=== PATIENT | male | born 1980 | race Two or more races ===

== ENCOUNTER 2022-04-12 03:41 | Emergency (ER) | payer BC ==
[2022-04-12] MEDS ORDERED: Lidocaine 1% 5 ML VIAL INJECT ONE (04:00)
[2022-04-12] MEDS ORDERED: Diphtheria,Pertussis(Acell),Tetanus Vaccine 0.5 ML Syringe IM ONE (04:00)
== END 2022-04-12 04:38 | disposition home or self-care (01) ==
LOC: MW.ED 03:41
DX: S61.412A Laceration without foreign body of left hand, initial encounter (principal); Z23 Encounter for immunization; W26.0XXA Contact with knife, initial encounter
CPT/HCPCS: 12002; 90471; 90715; 99282-25

== ENCOUNTER 2022-07-03 20:50 | Emergency (ER) | payer BC ==
[2022-07-03 22:38] LABS: CORONAVIRUS COVID-19 NAA NEGATIVE (NEGATIVE); INFLUENZA A NAA NEGATIVE (NEGATIVE); INFLUENZA B NAA NEGATIVE (NEGATIVE); RESPIRATORY SYNCYTIAL VIR NAA NEGATIVE (NEGATIVE)
[2022-07-03] MEDS ORDERED: Ibuprofen 600 MG Tab PO ONE (22:58)
[2022-07-03] MEDS ORDERED: Azithromycin 250 MG Tab PO ONE (22:58)
== END 2022-07-03 23:15 | disposition home or self-care (01) ==
LOC: MW.ED 20:50
DX: J98.8 Other specified respiratory disorders (principal); I10 Essential (primary) hypertension; Z79.899 Other long term (current) drug therapy; Z20.822 Contact with and (suspected) exposure to COVID-19
CPT/HCPCS: 0241U; 99283; A9270

== ENCOUNTER 2022-08-17 19:59 | Emergency (ER) | payer BC ==
[2022-08-17 22:33] LABS: CORONAVIRUS COVID-19 NAA NEGATIVE (NEGATIVE); INFLUENZA A NAA POSITIVE (NEGATIVE); INFLUENZA B NAA NEGATIVE (NEGATIVE)
[2022-08-17] MEDS ORDERED: Dexamethasone 10 MG/ML SDV IM STA (22:40)
== END 2022-08-17 23:08 | disposition home or self-care (01) ==
LOC: MW.ED 19:59
DX: J10.1 Influenza due to other identified influenza virus with other respiratory manifestations (principal); I10 Essential (primary) hypertension; Z20.822 Contact with and (suspected) exposure to COVID-19
CPT/HCPCS: 0240U; 71045; 96372; 99285; J1100

== ENCOUNTER 2022-12-03 16:32 | Emergency (ER) | payer BC ==
[2022-12-03] MEDS ORDERED: Orphenadrine 60 MG/2 ML Inj IM ONE (16:53)
[2022-12-03] MEDS ORDERED: Ketorolac 30 MG/ML SDV IM ONE (16:53)
== END 2022-12-03 17:39 | disposition home or self-care (01) ==
LOC: MW.ED 16:32
DX: M62.830 Muscle spasm of back (principal); I10 Essential (primary) hypertension
CPT/HCPCS: 96372; 99283; J1885; J2360

== ENCOUNTER 2024-07-06 09:55 | Emergency (ER) | payer SELFPAY ==
[2024-07-06] MEDS: Sodium Chloride 0.9% 2.5 ML Syringe FLUSH PRN (10:16)
[2024-07-06] MEDS: Sodium Chloride 0.9% 10 ML Syringe FLUSH PRN (10:16)
[2024-07-06] MEDS: Ketorolac 30 MG/ML SDV IVPUSH ONE (10:16)
[2024-07-06] MEDS: Sodium Chloride 0.9% 1,000 ML IV ONE (10:17)
[2024-07-06 10:28] LABS: BASOPHILS ABSOLUTE AUTO 0.06 K/uL (0.00-0.20); BASOPHILS PERCENT AUTO 0.9 % (0.0-1.0); EOSINOPHILS ABSOLUTE AUTO 0.04 K/uL (0.00-0.45); EOSINOPHILS PERCENT AUTO 0.6 % (0.0-6.0); HEMATOCRIT 44.7 % (42.0-52.0); HEMOGLOBIN 15.1 g/dL (14.0-18.0); LYMPHOCYTES ABSOLUTE AUTO 1.95 K/uL (1.00-4.80); LYMPHOCYTES PERCENT AUTO 30.5 % (24.0-44.0); MEAN CORPUSCULAR HGB CONC 33.8 g/dL (32.0-36.0); MEAN PLATELET VOLUME 9.6 fL (9.4-12.4); MONOCYTES PERCENT AUTO 7.8 % (0.0-8.0); NEUTROPHILS ABSOLUTE AUTO 3.84 K/uL (1.80-7.70); NEUTROPHILS PERCENT AUTO 60.2 % (41.0-71.0); PLATELET COUNT,PLT 261 K/uL (150-400); WHITE BLOOD CELL COUNT,WBC 6.39 K/uL (3.9-11.3)
[2024-07-06 10:58] LABS: A/G RATIO 1.1 (0.9-1.6); ALBUMIN 3.7 g/dL (3.4-5.0); BILIRUBIN TOTAL 0.6 mg/dL (0.2-1.0); CALCIUM 8.4 mg/dL (8.5-10.1); CREATININE 0.7 mg/dL (0.8-1.3); EST CRCL DRUG DOSING (CG) 136.07 mL/min; POTASSIUM,K 4.2 mmol/L (3.5-5.1); TSH ULTRASENSITIVE 1.2 uIU/mL (0.36-3.74)
== END 2024-07-06 12:04 | disposition home or self-care (01) ==
LOC: MW.ED 09:55
DX: R20.2 Paresthesia of skin (principal); R07.9 Chest pain, unspecified; Z79.899 Other long term (current) drug therapy; Z75.8 Other problems related to medical facilities and other health care
CPT/HCPCS: 36415; 70450; 71045; 80053; 84443; 84484; 85025; 93005; 96361; 96374; 99285; J1885; J3490; J7030; 93010; 99284

== ENCOUNTER 2025-07-07 22:43 | Day surgery (SDC) | payer BC ==
[2025-07-07 23:24] LABS: BASOPHILS ABSOLUTE AUTO 0.05 K/uL (0.00-0.20); BASOPHILS PERCENT AUTO 0.3 % (0.0-1.0); EOSINOPHILS ABSOLUTE AUTO 0.07 K/uL (0.00-0.45); EOSINOPHILS PERCENT AUTO 0.4 % (0.0-6.0); IMMATURE GRAN ABSOLUTE AUTO 0.09 K/uL (0.00-0.05); IMMATURE GRAN PERCENT AUTO 0.5 % (0.0-0.4); LYMPHOCYTES ABSOLUTE AUTO 1.92 K/uL (1.00-4.80); LYMPHOCYTES PERCENT AUTO 9.9 % (24.0-44.0); MEAN PLATELET VOLUME 10.0 fL (9.4-12.4); MONOCYTES ABSOLUTE AUTO 1.24 K/uL (0.00-0.80); MONOCYTES PERCENT AUTO 6.4 % (0.0-8.0); NEUTROPHILS ABSOLUTE AUTO 16.06 K/uL (1.80-7.70); NEUTROPHILS PERCENT AUTO 82.5 % (41.0-71.0); NRBC ABSOLUTE 0.00 K/uL (0.00-0.02); NRBC PERCENT 0.0 /100WBC (0.0-0.2); PLATELET COUNT,PLT 235 K/uL (150-400); RED BLOOD CELL COUNT 5.24 M/uL (4.52-5.90); WHITE BLOOD CELL COUNT,WBC 19.43 K/uL (3.9-11.3)
[2025-07-07 23:34] LABS: APPEARANCE,URINE CLEAR; GLUCOSE,URINE NEGATIVE (NEGATIVE); OCCULT BLOOD,URINE NEGATIVE (NEGATIVE)
[2025-07-07] MEDS ORDERED: Sodium Chloride 0.9% 2.5 ML Syringe FLUSH PRN (23:42)
[2025-07-07] MEDS ORDERED: Sodium Chloride 0.9% 10 ML Syringe FLUSH PRN (23:42)
[2025-07-07 23:43] LABS: EPITHELIAL CELLS,URINE RARE (NONE-FEW)
[2025-07-07 23:52] LABS: A/G RATIO 1.1 (0.9-1.6); ALANINE AMINOTRANSFERASE,ALT 63 IU/L (14-63); ASPARTATE AMNIOTRANSFERASE,AST 34 IU/L (15-37); BILIRUBIN TOTAL 0.6 mg/dL (0.2-1.0); BLOOD UREA NITROGEN,BUN 27 mg/dL (7.0-18.0); CARBON DIOXIDE,CO2 26.8 mmol/L (21.0-32.0); CHLORIDE,CL 103 mmol/L (98-107); CREATININE 0.8 mg/dL (0.8-1.3); GLUCOSE RANDOM 134 mg/dL (74-106); POTASSIUM,K 4.2 mmol/L (3.5-5.1); PROTEIN TOTAL,TP 7.5 g/dL (6.4-8.2); SODIUM,NA 137 mmol/L (136-148)
[2025-07-07 23:56] LABS: ESTIMATED GFR 112 mL/min (>60)
[2025-07-08 00:06] LABS: LACTIC ACID 0.9 mmol/L (0.4-2.0)
[2025-07-08] MEDS: Iopamidol 755 MG/ML 500 ML Multipack Bottle IVPUSH STA (00:45)
[2025-07-08] MEDS ORDERED: Naloxone 0.4 MG/ML SDV IVPUSH PRN ×2 (01:18→07:33)
[2025-07-08] MEDS: Ondansetron 4 MG/2 ML SDV IVPUSH ONE ×2 (02:38)
[2025-07-08] MEDS: Lactated Ringers 1,000 ML IV SCH (02:44)
[2025-07-08] MEDS ORDERED: Ondansetron 4 MG/2 ML SDV IVPUSH PRN (07:33)
[2025-07-08] MEDS ORDERED: fentaNYL 50 MCG/ML SDV IVPUSH PRN (07:33)
[2025-07-08] MEDS ORDERED: Albuterol 0.083% 2.5 MG/3 ML Neb Soln NEB PRN (07:33)
[2025-07-08] MEDS ORDERED: Lactated Ringers 1,000 ML IV SCH ×2 (08:15→14:00)
[2025-07-08] MEDS ORDERED: propofoL 1,000 MG/100 ML 100 ML ONE ×2 (08:21→11:11)
[2025-07-08] MEDS ORDERED: Morphine 10 MG/ML SDV ONE ×2 (08:38→09:41)
[2025-07-08] MEDS ORDERED: fentaNYL 250 MCG/5 ML SDV ONE (08:38)
[2025-07-08] MEDS ORDERED: Ondansetron 4 MG/2 ML SDV ONE ×2 (08:38→08:48)
[2025-07-08] MEDS ORDERED: Ketorolac 30 MG/ML SDV ONE ×2 (08:38→09:40)
[2025-07-08] MEDS ORDERED: dexmedeTOMIDine HCl 200 MCG/2 ML SDV ONE ×2 (08:38→08:41)
[2025-07-08] MEDS ORDERED: Propofol 200 MG/20 ML SDV ONE (08:38)
[2025-07-08] MEDS ORDERED: Ketamine HCL/NACL, ISO-OSM 50 MG/5 ML Syringe ONE ×2 (08:38→08:49)
[2025-07-08] MEDS ORDERED: Dexamethasone 4 MG/ML 5 ML MDV ONE (08:38)
[2025-07-08] MEDS ORDERED: Ropivacaine 0.5% 5 MG/ML 30 ML SDV ONE ×2 (08:40→08:41)
[2025-07-08] MEDS ORDERED: Scopalamine 1mg/3day Transdermal Patch ONE (08:48)
[2025-07-08] MEDS ORDERED: fentaNYL 100 MCG/2 ML SDV ONE (09:40)
[2025-07-08] MEDS ORDERED: Lidocaine 2% 11 ML Jelly Filled Syringe ONE (12:32)
[2025-07-08] MEDS ORDERED: Magnesium Sulfate (4.06 MEQ/ML) 5 GM/10 ML SDV ONE (12:54)
[2025-07-08] MEDS: Acetaminophen/HYDROcodone 325-5 MG Tab PO PRN (19:25)
== END 2025-07-08 19:51 | disposition home or self-care (01) ==
LOC: MW.ED 22:43 → MW.MS 07-08 02:13 → MW.SDS 07-08 02:13
PROVIDERS: ATTEND Surgery
DX: K35.30 Acute appendicitis with localized peritonitis, without perforation or gangrene (principal); I10 Essential (primary) hypertension; E66.9 Obesity, unspecified; Z79.899 Other long term (current) drug therapy
CPT/HCPCS: 36415; 44970; 64488; 74177; 80053; 81001; 82947; 83605; 83690; 85025; 87040; 87154; 93005; 96361; 96365; 96375; 96376; 99285; A9270; J0665; J1308; J1885; J2003; J2270; J2272; J2405; J2543; J2704; J2795; J3010; J3475; J7030; J7120; J7999; Q9967; 00840; 93010; 99284; J0690; J1100; J2371; J3490